=== PATIENT | male | born 1960 | race Caucasian/White ===

== ENCOUNTER → 2019-02-03 | Outpatient (CLI) | payer MEDICAID ==
[~2019-02-03] MED LIST: ASPI81TA45 PO; ATOR10TA PO; CARV6.252 PO; FURO-93 PO; LEVO50TA PO; LISI5TAB7 PO; PARO20TA4 PO; REGADENOSON 0.4 MG/5 ML SYRINGE ONE
== END | disposition home or self-care (01) ==
LOC: CFH 12:45
PROVIDERS: ATTEND Internal Medicine Cardiovascular Disease
DX: I07.1 Rheumatic tricuspid insufficiency (principal); I10 Essential (primary) hypertension; I25.5 Ischemic cardiomyopathy; I25.2 Old myocardial infarction; E78.5 Hyperlipidemia, unspecified; Z95.0 Presence of cardiac pacemaker; Z87.891 Personal history of nicotine dependence
CPT/HCPCS: 93306; J2785

== ENCOUNTER 2019-02-08 12:08 | Outpatient (CLI) | payer MEDICAID ==
[~2019-02-08 12:08] MED LIST changes: -REGADENOSON 0.4 MG/5 ML SYRINGE ONE
[2019-02-08] MEDS ORDERED: REGADENOSON 0.4 MG/5 ML SYRINGE ONE (12:39)
== END 2019-02-08 23:59 | disposition home or self-care (01) ==
LOC: CFH 12:08
PROVIDERS: ATTEND Internal Medicine Cardiovascular Disease
DX: I42.9 Cardiomyopathy, unspecified (principal); I51.7 Cardiomegaly; R07.9 Chest pain, unspecified
CPT/HCPCS: 78452; 93017; A9502; J2785